=== PATIENT | male | born 1955 | race Caucasian/White ===

== ENCOUNTER 2025-02-01 13:59 | Emergency (ER) | payer OTHER ==
[2025-02-01 14:12] VITALS: BMI 29.2
[2025-02-01 14:32] LABS: EPI CELLS 29 /uL (0-25.1); HYALINE CASTS 1 /uL (0-3.1); PH,URINE 6.5 (5.0-8.0); URINE APPEARANCE CLEAR; URINE BACTERIA 4 /uL (0-1359); URINE BILIRUBIN NEGATIVE (NEGATIVE); URINE COLOR ORANGE; URINE GLUCOSE (UA) NEGATIVE (NEGATIVE); URINE KETONE NEGATIVE (NEGATIVE); URINE LEUK ESTERASE 2+ (NEGATIVE); URINE NITRITE NEGATIVE (NEGATIVE); URINE PROTEIN 1+ (NEGATIVE); URINE RBC 75 /uL (0-23.9); URINE UROBILINOGEN 0.2 mg/dL (0.2-1.0); URINE WBC 172 /uL (0-25.8)
[2025-02-01 14:54] LABS: ABSOLUTE IMMATURE GRANULOCYTES 0.02 x10^3/uL (0.0-0.031); BASOPHILS # 0.05 x10^3/uL (0.01-0.08); EOSINOPHILS # 0.07 x10^3/uL (0.04-0.54); HEMATOCRIT 45.2 % (40.1-51.0); HEMOGLOBIN 15.5 g/dL (13.7-17.5); MCHC 34.3 g/dl (32.3-36.5); MEAN CELL VOLUME 90.2 fl (79.0-92.2); MEAN PLT VOLUME 10.5 fl (9.4-12.4); MONOCYTE # 0.62 x10^3/uL (0.30-0.82); MONOCYTE % 8.4 % (5.3-12.2); PLATELET COUNT # 208 x10^3/uL (163-337); RDW 12.5 % (12.2-16.4)
[2025-02-01 15:01] LABS: INR 1.01 (0.83-1.09)
[2025-02-01 15:04] LABS: ACTIVATED PTT 31.1 SECONDS (25.2-36.5)
[2025-02-01 15:24] LABS: POTASSIUM 4.3 mmol/L (3.5-5.1)
[2025-02-01 15:26] LABS: ALBUMIN 4.1 g/dl (3.4-5.0); BLOOD UREA NITROGEN 14.5 mg/dL (7-18); CALCIUM 9.5 mg/dL (8.5-10.1)
[2025-02-01 15:30] LABS: CREATININE 1.1 mg/dL (0.55-1.3)
[2025-02-01] MEDS ORDERED: CEFTRIAXONE 1 G/50 ML PREMIX 50 ML IVPB ONE (15:30)
[2025-02-01 15:31] LABS: BILIRUBIN,TOTAL 1.3 mg/dL (0.2-1); TOT PROT 7.1 g/dl (6.4-8.2)
[2025-02-01] MEDS: CEFTRIAXONE 1,000 MG in DEXTROSE 5%-WATER - 50 ML IVPB ONE (15:37)
[2025-02-01] MEDS: SODIUM CHLORIDE 0.9% 500 ML INFUS.BAG IV ONE (15:37)
[2025-02-01 16:15] LABS: HCV DIAGNOSTIC IN-HOUSE W/RFLX NON-REACTIVE (NONREACTIVE); HIV INTERPRETATION NEGATIVE (NEGATIVE)
[2025-02-01 17:22] VITALS: BP 125/77; PULSE 62; RESP 20; TEMP 98.1
== END 2025-02-01 17:21 | disposition home or self-care (01) ==
LOC: JER 13:59
DX: R31.9 Hematuria, unspecified (principal)
CPT/HCPCS: 36415; 76775-TC; 80053; 81003; 85025; 85610; 85730; 86803; 87086; 87389; 96365; 99285-25